=== PATIENT | male | born 1945 | race African-American/Black ===

== ENCOUNTER 2018-11-23 21:45 | Inpatient (IN) | payer OTHER ==
[~2018-11-23] VITALS: Ht 172.7 cm; Wt 78.7 kg
[2018-11-23 21:46] VITALS: BP 114/42
[2018-11-23 22:43] LABS: BE(vivo) 1.9 mmol/L (-2 to +3); PCO2 33.6 mmHg (35.0-45.0); PO2 74.6 mmHg (80.0-100.0); pH 7.489 (7.360-7.450); sO2 96.1 % (92.0-98.0)
[2018-11-23 22:47] LABS: HEMATOCRIT 31.3 % (42.0-52.0); HEMOGLOBIN 10.2 gm/dL (14.0-18.0); MCH 29.6 pg (26.0-34.0); MCHC 32.4 g/dL (28.0-37.0); MCV 91.3 fL (80.0-100.0); PLATELET COUNT 320 thou/uL (150-400); RBC 3.43 mil/uL (4.50-6.00); RDW 17.2 % (10.5-14.5); WBC 15.1 thou/uL (4.0-11.0)
[2018-11-23 22:55] LABS: ANION GAP 12 mmol/L (7-16); BUN 97 mg/dL (7-18); CALCIUM 9.2 mg/dL (8.5-10.1); CHLORIDE 106 mmol/L (98-107); CO2 27 mmol/L (21-32); CREATININE 1.4 mg/dL (0.7-1.3); GLUCOSE 238 mg/dL (74-106); POTASSIUM 4.9 mmol/L (3.5-5.1); SODIUM 145 mmol/L (136-145)
[2018-11-23 23:00] LABS: INR 1.1; PROTIME 11.2 Seconds (9.3-11.4)
[2018-11-23 23:04] LABS: ALBUMIN 2.2 g/dL (3.4-5.0); MAGNESIUM 2.4 mg/dL (1.8-2.4); SGOT 76 U/L (15-37); SGPT 151 U/L (30-65); TOTAL BILIRUBIN 0.5 mg/dL (<0.1-1.0); TOTAL PROTEIN 7.9 g/dL (6.4-8.2); TROPONIN-I <0.06 ng/mL (<0.06)
[2018-11-23 23:49] LABS: ANISOCYTOSIS 1+; PLATELET ESTIMATE NORMAL; POIKILOCYTOSIS 1+; POLYCHROMASIA 1+
[2018-11-24] VITALS (61 sets, daily range): BP systolic 73–142; BP diastolic 29–47
[2018-11-24 02:04] LABS: URINE BILIRUBIN NEGATIVE (Negative); URINE BLOOD 2+ (Negative); URINE CLARITY SL CLOUDY; URINE COLOR YELLOW; URINE GLUCOSE-RANDOM* NEGATIVE (Negative); URINE KETONES NEGATIVE (Negative); URINE LEUKOCYTES-REFLEX 3+ (Negative); URINE NITRITE-REFLEX NEGATIVE (Negative); URINE PROTEIN (DIPSTICK) 2+ (Negative); URINE SPECIFIC GRAVITY <= 1.005 (1.005-1.035)
[2018-11-24 02:35] LABS: CASTS None Seen /LPF (None Seen); MUCUS 0-3 Light strn/LPF (None Seen); SQUAMOUS None Seen /LPF (0-3)
[2018-11-24 02:36] LABS: BACTERIA-REFLEX >30 Many /HPF (None Seen); TRIPLE PHOSPHATE CRYSTALS >10 Many /LPF (None Seen)
[2018-11-24 02:40] LABS: HCO3 23.5 mmol/L (22.0-26.0); PCO2 54.9 mmHg (35.0-45.0); PO2 170.1 mmHg (80.0-100.0); sO2 98.9 % (92.0-98.0)
[2018-11-24] MEDS ORDERED: TYLENOL325 MG PER TUBE (04:01)
[2018-11-24] MEDS ORDERED: LIPITOR 20 MG T20 M1 PER TUBE (04:02)
[2018-11-24] MEDS ORDERED: AMLODIPINE BESY10 MG PER TUBE (04:02)
[2018-11-24] MEDS ORDERED: MARINOL2.5 MG PER TUBE (04:03)
[2018-11-24] MEDS ORDERED: ELIQUIS5 MG PER TUBE ×2 (04:04→04:05)
[2018-11-24] MEDS ORDERED: HYDROCODON-ACE1 EAC5 PER TUBE (04:05)
[2018-11-24] MEDS ORDERED: LISINOPRIL10 MG PER TUBE (04:06)
[2018-11-24] MEDS ORDERED: ONDANSETRON HCL4 M2 PER TUBE (04:08)
[2018-11-24] MEDS ORDERED: ZANTAC 150MG T150 MG PER TUBE (04:09)
[2018-11-24 07:10] LABS: HEMATOCRIT 28.1 % (42.0-52.0); MCH 29.7 pg (26.0-34.0); RBC 3.02 mil/uL (4.50-6.00); RDW 16.6 % (10.5-14.5); WBC 12.6 thou/uL (4.0-11.0)
[2018-11-24 07:23] LABS: CALCIUM 7.7 mg/dL (8.5-10.1); CREATININE 1.4 mg/dL (0.7-1.3); MAGNESIUM 2.1 mg/dL (1.8-2.4); POTASSIUM 4.6 mmol/L (3.5-5.1)
--- NOTE | 2018-11-24 07:53 | EKG ---
[address] [place] [address] ELECTROCARDIOGRAM REPORT Name: SABIHA AGUILERA Room #: 237-P ADM IN M.R.#: [id number] ������������������ Admission: 11/23/18 ������������������ Attend Phys: Tonie Gtz MD Discharge: ������������������ Date of : 43 Report #: [id number] ����������������������������������������������������������������� [id number] THIS REPORT FOR: //name// [facility] ED Test Date: 2018-11-23 Test Time: 21:46:07 Pat Name: SABIHA AGUILERA Department: Room: 237 Gender: M [employer] Driver: JOANIE : 1945 Requested By: Aron Robins Order Number: [id number] MD: Chris Gómez Measurements Intervals [place] Rate: 77 P: [place]: QRS: -71 QRSD: 146 T: 99 QT: 443 QTc: 502 Interpretive Statements V-paced complexes No further analysis attempted due to paced rhythm No previous ECG available for comparison Electronically Signed On 11-24-2018 7:53:18 CDT by Chris Gómez [email or web address] ��������������������������������������������� <ELECTRONICALLY SIGNED> ���������������������������������������� By: Chris Gómez MD, [facility] ��������������������������������������������� 11/24/18 0753 2146 45 Chris Gómez MD, FACC /EPI
--- NOTE | 2018-11-24 08:11 | NUR ---
RECEIVED PT FROM ER TO ICU 237. PT SEEMED TO STILL BE UNDER PARALYTIC, NO MOVEMENT OF EXTREMITIES, EVEN TO PAINFUL STIMULI. EYES OPEN NO COUGH/ OR GAG. LOW DOSE PROPOFOL STARTED FOR SEDATIVE. AND PT DID START MOVING AGAIN THIS AM AND NEEDED TO RESTRAIN RT ARM. MONITORS 100 VENT PACED. SPOKE WITH DR WEBER DURING NOC RE PT STATUS AND ABGS. MAINT IV INFUSING, UO ADEQUATE WITH CLOUDY URINE. ABX GIVEN. CONT PLAN OF CARE
[2018-11-24 08:16] LABS: BE(vivo) -2.7 mmol/L (-2 to +3); HCO3 22.4 mmol/L (22.0-26.0); PCO2 39.7 mmHg (35.0-45.0); PO2 130.3 mmHg (80.0-100.0); pH 7.369 (7.360-7.450); sO2 98.5 % (92.0-98.0)
--- NOTE | 2018-11-24 09:15 | NUR ---
Recommend tube feed of pivot 1.5 at 50ml/hr. Will defer any fluid flushes to physician.
[2018-11-24] MEDS ORDERED: ALBUTEROL2.5 MG/0.5 INH (10:12)
[2018-11-24] MEDS ORDERED: MIRALAX17 GM PER TUBE (10:13)
[2018-11-24] MEDS ORDERED: SANTYL OINTMENT30 G1 TOP ×4 (10:14→14:03)
--- NOTE | 2018-11-24 10:38 | NUR ---
CM ASSESSMENT: CASE OPENED FOR DC PLANNING. CLINICAL INFO REVIEWED. PT ADMIT THRU ER WITH LIKELY SEPSIS AND RESP FAILURE AND INTUBATED IN ER. ADMITS FROM [facility]. SPOKE WITH JULIANA IN ADMISSIONS AT FACILITY. PT IS W/C LEVEL MOBILITY AND REQUIRES ASSIST WITH ADLS. ADMITTED TO FACILITY IN JULY 2018 AND CONVERTED TO LTC. PT'S NEXT OF KIN IS HIS NIECE, ROXY AGUILERA [phone]. SPOKE WITH MS. AGUILERA WHO CONFIRMS FACILITY NOTIFIED HER OF HOSPITAL ADMIT AND PLAN FOR RETURN TO [facility] WHEN MEDICALLY STABLE. PROVIDED MS. AGUILERA WITH ICU CONTACT # AND CM CONTACT #. REQUESTED DC INNERSOLE MAKER FAX CLINICAL TO JULIANA IN ADMISSIONS AT FACILITY.
--- NOTE | 2018-11-24 10:54 | NUR ---
discharge planning: silverio sent clinicals to [facility] at [facility]. SILVERIO also sent text to notify [facility] of fax.
--- NOTE | 2018-11-24 11:56 | NUR ---
CONSULTED TO PLACE A PICC FOR A PATIENT ADMITTING WITH SEPSIS LAST PM. ORDER NOTED AND CONSENT DONE PER MEDICAL NECESSITY AFTER STAFF MADE MULTIPLE ATTEMPTS TO REACH THE DPOA. THE RIGHT UPPER ARM BASILIC WAS WIDLEY PATENT. A #5F TRIPLE LUMEN POWER PICC WAS PLACED AFTER A BEDSIDE TIMEOUT WAS COMPLETED PER HOSPITAL POLICY. LINE WAS TRIMMED TO 40CM AND ADVANCED WITHOUT DIFFICULTY. LINE CONFIRMED BY THE RADIOLOGIST BY A STAT CHEST XRAY. LINE RELEASED FOR USE
[2018-11-24] MEDS ORDERED: IPRAT-ALBUT 0.5-3 ML INH (13:56)
[2018-11-25] VITALS (32 sets, daily range): BP systolic 98–146; BP diastolic 37–67
[2018-11-25 05:01] LABS: CALCIUM 8.1 mg/dL (8.5-10.1); CREATININE 0.9 mg/dL (0.7-1.3); POTASSIUM 4.1 mmol/L (3.5-5.1)
[2018-11-25 05:03] LABS: HEMATOCRIT 25.7 % (42.0-52.0); HEMOGLOBIN 8.5 gm/dL (14.0-18.0); MCH 30.1 pg (26.0-34.0); MCV 91.2 fL (80.0-100.0); RBC 2.82 mil/uL (4.50-6.00); RDW 16.6 % (10.5-14.5); WBC 9.4 thou/uL (4.0-11.0)
[2018-11-25 05:08] LABS: BE(vivo) -3.7 mmol/L (-2 to +3); HCO3 20.7 mmol/L (22.0-26.0); PCO2 35.1 mmHg (35.0-45.0); PO2 127.4 mmHg (80.0-100.0); pH 7.388 (7.360-7.450); sO2 98.5 % (92.0-98.0)
--- NOTE | 2018-11-25 08:57 | NUR ---
SEE [facility] FOR ASSESSMENT. PT WILL AWAKENS ON PROPOFOL. NODS YES/NO TO QUESTIONS. SEEMS TO UNDERSTAND, APPEARS AGITATED. RT ARM RESTRAINT ON, LEFT ARM MOVES WITH GROSS MOTOR. PACED RYTHEM ON MONITOR. CONT ON VENT. THICK YELLOW SECRETIONS. UO ADEQUATE. CONT PLAN OF CARE. PROGRESSING TOWARD GOALS
--- NOTE | 2018-11-25 14:15 | NUR ---
WOUND CARE CONSULT; ROUNDING TODAY WITH DR CHANDLER BAILEY AND YUSRA HELP DESK SUPERVISOR. THE LEFT FOOT HAS WOUNDS TO THE 3RD AND 4TH TOE WELL THE RIGHT ISCIAL TUBEROSITY, AND THE SACRUM; A RESOLVEING STAGE Y IS LIKELY ALL THE WOUNDS HAVE HEALTHY RED TISSUE. RECOMMENDATIONS; TO ALL WOUNDS PURACOL AG TO WOUND BED, COVER WITH XEROFOAM,, ABD, SECURE WITH TAPE, M/W/F DISCUSSED WITH RN
--- NOTE | 2018-11-25 14:27 | NUR ---
WOUND CARE CONSULT; ROUNDING WITH DR LYNN MENG RN. THERE IS A WOUND TO THE SACRUM #1 , THE RIGHT ISCIAL TUBEROSITY #2, THE LEFT 3RD TOE #3 AND THE LEFT 3RD TOE #4. ALL WOUND BEDS ARE CLEAN. RECOMMENDATIONS PURACOL AG TO ALL WOUNDS M/W/F DISCUSSED WITH ANAMARIA
--- NOTE | 2018-11-25 16:14 | NUR ---
PT VSS, ABLE TO RESPOND TO Y/N QUESTIONS APPROPRIATELY BY NODDING HEAD, SPOKE WITH MAC RAMSEY VIA PHONE, SHE VERBALIZED THAT PT DPOA IS MAURICIO DAY ([phone]) WHOM WILL BRING IN DPOA PAPERWORK SOON. UPDATE BOTH ROXY AND ED ON PT PLAN OF CARE, THEY BOTH AGREED WITH PLAN. WILL CONTINUE TO MONITOR.
--- NOTE | 2018-11-25 19:23 | NUR ---
PER ANAMARIA BANKSTESTER WAFER SUBSTRATE, WOULD CARE PICTURES NOT NEEDED TODAY BC THERE WERE PICTURES DOCUMENTED 11/24/18 BY NURSE STAFF.
--- NOTE | 2018-11-25 19:31 | HC ---
[facility] [place] [address] CONSULTATION Name: SABIHA AGUILERA Room #: 237-P ADM IN M.R.#: [id number] Admission: 11/23/18 ������������������ Attend Phys: Tonie Gtz MD Discharge: ������������������ Date of : 43 Report #: [id number] THIS REPORT FOR: //name// CC: Gaurang Gtz DATE OF SERVICE: 11/24/2018 PULMONARY CONSULTATION REFERRING PHYSICIAN: Dr. Fuchs. REASON FOR REFERRAL: Acute respiratory failure. HISTORY OF PRESENT ILLNESS: The patient is a 73-year-old male who was brought to the Emergency Room with respiratory distress. He is from a facility. A pulmonary consultation was requested. The patient has prior history of CVA, pneumonia with frequent aspiration. History is quite limited as currently the patient is intubated. There is a niece in town, but not able to get hold of. Other records are limited. Per EMS, the staff at the facility noted that the patient was in respiratory distress yesterday evening, 911 was called. When EMS arrived, the patient was placed on CPAP, was given DuoNeb treatment and was taken to the Emergency Room. On route, the patient was found to be in rhythm. When he arrived in the ED, the patient was placed on CPAP; however, eventually, his respiratory status deteriorated and was subsequently intubated. A chest x-ray on admission revealed moderate right lower lobe infiltrate, also involving the right middle lobe. Currently, he is hemodynamically stable, easily arousable with physical stimuli. PAST MEDICAL HISTORY: As mentioned above including history of CVA, apparent aspiration, status post PEG tube placement, history of pneumonia. ALLERGIES: None. MEDICATIONS: [place] [facility], not available for review. Current medications reviewed in the JUL. FAMILY HISTORY: Unknown. SOCIAL HISTORY: Unknown. [facility] [address] [place] [address] CONSULTATION Name: SABIHA AGUILERA Room #: 237-P [facility] IN .R.#: [id number] Admission: 11/23/18 ������������������ Attend Phys: Tonie Gtz MD Discharge: ������������������ Date of : 44 Report #: [id number] REVIEW OF SYSTEMS: Deferred as the patient is intubated. PHYSICAL EXAMINATION: GENERAL: He is arousable, somewhat incoherent, restless, currently on sedation. VITAL SIGNS: Temperature on admission was 101.0 degrees Fahrenheit, currently 99.9 degrees Fahrenheit; pulse is 60, respiratory rate is 18, blood pressure 140/36 mmHg, saturation 100% on supplemental FiO2. HEENT: Normocephalic, atraumatic. He is orally intubated. NECK: Supple, without lymphadenopathy or thyromegaly. There is no JVD. CHEST: Breath sounds are fair. Rales in the right lung field. No obvious wheezes. Few scattered crackles are heard in the left base. CARDIOVASCULAR: Heart sounds are distant. No obvious murmurs or gallops. Pulses are 2+/4+ bilaterally. ABDOMEN: Soft, nontender, no organomegaly or masses felt. There is a PEG tube noted in the left upper quadrant. GENITOURINARY: Deferred. RECTAL: Deferred. EXTREMITIES: There is no edema, cyanosis or clubbing. NEUROLOGIC: Deferred, but the patient is arousable, appears restless. He appears to be somewhat weaker on the left extremities, but is not flaccid. LABORATORY DATA: Chest x-ray as mentioned above showing moderate right lower lobe and middle lobe infiltrates. ET tube is approximately 3 cm above the simon. Lactic acid is 3.8. UA shows many bacteria. MRSA screen was positive. C-reactive protein is markedly elevated. Sodium 147, potassium 4.6, chloride 110, CO2 of 26, BUN is 91, creatinine is 1.4. Liver enzymes are mildly elevated. WBC 15,100, hemoglobin 10.2, platelets are normal. Bands are mildly elevated, but within normal limits. Albumin 2.2. Arterial blood gas on admission revealed pH 7.48, pCO2 of 33, pO2 of 74 on FiO2 of 100%. IMPRESSION: 1. Acute hypoxic respiratory failure in a 73-year-old male with past history of cerebrovascular accident, history of recurrent aspiration. Another episode of aspiration pneumonia is likely involving the right lower lobe and the right middle lobe. 2. History of cerebrovascular accident with progressive muscle weakness, debility. 3. History of aspiration risk, status post PEG tube placement. 4. Azotemia with renal insufficiency, suspect volume depletion. Recommend IV fluids. Unclear if the patient has chronic kidney disease. Review of old records will be helpful if available. 5. Severe protein calorie malnutrition with an albumin of 2.2. RECOMMENDATIONS: Agree with broad-spectrum antibiotics to cover for aspiration pneumonia. Levaquin can be discontinued from my perspective. Deep venous thrombosis and gastrointestinal prophylaxis recommended. Await sputum culture [address] [address] CONSULTATION Name: SABIHA AGUILERA Room #: 237-P [facility] IN M.R.#: [id number] Admission: 11/23/18 ������������������ Attend Phys: Tonie Gtz MD Discharge: ������������������ Date of : 43 Report #: [id number] results. IV fluids as mentioned above. Follow urine output closely. Overall outlook appears to be poor given his history and physiologic status. Would recommend discussing medical directives with the patient's niece. Thank you for this consultation. ��������������������������������������������� <ELECTRONICALLY SIGNED> ���������������������������������������� By: Pal Barnes MD ��������������������������������������������� 11/25/18 1931 1715 2300 Pal Barnes MD /nt
[2018-11-26] VITALS (41 sets, daily range): BP systolic 98–134; BP diastolic 34–55
[2018-11-26 06:00] LABS: HEMOGLOBIN 8.4 gm/dL (14.0-18.0); MCH 29.6 pg (26.0-34.0); MCHC 32.5 g/dL (28.0-37.0); RBC 2.85 mil/uL (4.50-6.00); RDW 16.3 % (10.5-14.5); WBC 9.4 thou/uL (4.0-11.0)
[2018-11-26 06:16] LABS: ALBUMIN 1.6 g/dL (3.4-5.0); CALCIUM 8.2 mg/dL (8.5-10.1); CREATININE 0.9 mg/dL (0.7-1.3); POTASSIUM 3.9 mmol/L (3.5-5.1); TOTAL BILIRUBIN 0.3 mg/dL (<0.1-1.0); TOTAL PROTEIN 6.5 g/dL (6.4-8.2)
--- NOTE | 2018-11-26 07:33 | NUR ---
NO ACUTE CHANGES NOTED,VENT SETTINGS UNCHANGED, TUBE FEEDING STARTED LAST NIGHT ADVANCING SLOWLY TO GOAL, RATE AT 30ML/HR, GOAL IS 50ML. VITALS WNL, HIGGINS DRAINED 500CC. FREQUENT TURNS DONE.
--- NOTE | 2018-11-26 08:33 | NUR ---
PT'S FRIEND MAURICIO DAY VISITED YESTERDAY STATING HE WAS MEDICAL POA BUT DID NOT HAVE DOCUMENT ON HIM. CALLED [facility] AND THEY DID NOT HAVE DOCUMENT BUT PARKING INSPECTOR CONFIRMED MAURICIO MEDIAL DPOA. MAURICIO HERE THIS AM AND PROVIDED DOCUMENT AND COPY NOW IN CHART AND FAXED COPY TO [facility] ADMISSIONS. YESTERDAY, PAD EXTRACTOR TENDER STATED MR DAY TOLD HER PT SPENSERLEY DID NOT WANT BREATHING TUBE OR TRACHEOSTOMY IF NEEDED, BUT DPOA STATED SOMETHING LIKE, NOT READY TO GIVE UP ON PT. PAD EXTRACTOR TENDER YEE UPDATED.
[2018-11-26 10:36] LABS: BE(vivo) -3.7 mmol/L (-2 to +3); HCO3 20.6 mmol/L (22.0-26.0); PCO2 33.8 mmHg (35.0-45.0); PO2 111.2 mmHg (80.0-100.0); pH 7.402 (7.360-7.450); sO2 98.1 % (92.0-98.0)
--- NOTE | 2018-11-26 10:43 | NUR ---
capacity planner faxed signed DPA to [facility]
--- NOTE | 2018-11-26 11:10 | NUR ---
Pt was placed on CPAP trial by RT (Dr Barnes aware). ABG post CPAP trial called to Dr Barnes. Pt is resting quiestly. Dr Gtz planning to meet approx 1130 with pt's DPOA to discuss plan of care.
--- NOTE | 2018-11-26 15:38 | NUR ---
RECEIVED CALL FROM PT'S NIECE, ROXY AGUILERA. SHE INDICATES PT'S DPOA MAURICIO SHAY LEANS ON HER TO ASSIST IN MAKING MEDICAL DECISIONS FOR PT. ROXY REQUESTED UPDATE ON CONDITION AND PROVIDED AND DISCUSSED COMORBIDITIES AND CODE STATUS. ROXY INDICATES SHE WILL DISCUSS WITH MR. DAY AND REQUESTS UPDATE CALL FROM TOMORROW.
--- NOTE | 2018-11-26 16:05 | HC ---
[facility] [place] [address] CONSULTATION Name: SABIHA AGUILERA Room #: 237-P [facility] IN M.R.#: [id number] Admission: 11/23/18 ������������������ Attend Phys: Tonie Gtz MD Discharge: ������������������ Date of : 44 Report #: [id number] THIS REPORT FOR: //name// CC: Gaurang Gtz DATE OF SERVICE: 11/25/2018 CHIEF COMPLAINT: Lower extremity ulcerations. HISTORY OF PRESENT ILLNESS: This is a 73-year-old male patient who is currently on a ventilator in the Intensive Care Unit. He was found to be in respiratory distress with a history of dysphagia and frequent aspirations. He was intubated. He remains in the ICU. He is noted to have ulcerations on his feet and sacral region. I have been asked to see him with regard to wound care. The patient can provide no information about himself at this time. PAST MEDICAL HISTORY: Positive for history of osteomyelitis, previous right above knee amputation, DVT with possible pulmonary emboli, type 2 diabetes mellitus, sacral ulcerations, history of a left fourth toe amputation, hypertension, hyperlipidemia and atrial fibrillation. He has a permanent pacemaker. FAMILY HISTORY: Unknown. SOCIAL HISTORY: Unknown. MEDICATIONS: Include Tylenol, amlodipine, atorvastatin, Eliquis, Zestril, Zofran and Zantac. ALLERGIES: No known drug allergies. REVIEW OF SYSTEMS: Unobtainable due to the patient's condition. PHYSICAL EXAMINATION: VITAL SIGNS: At this time include blood pressure 119/54, pulse rate 60, respiratory rate of 20. GENERAL: This is a chronically ill-appearing male patient who appears to be in no obvious distress. He appears sedated or minimally responsive. HEAD: Normocephalic. NECK: Supple. The patient is orally intubated. LUNGS: Diminished. HEART: Regular. ABDOMEN: Soft. MUSCULOSKELETAL: Examination of the sacral region demonstrates stage 3 pressure ulceration to the sacral region and the right ischial region. These are [address] [address] CONSULTATION Name: SABIHA AGUILERA Room #: 237-P [facility] IN .R.#: [id number] Admission: 11/23/18 ������������������ Attend Phys: Tonie Gtz MD Discharge: ������������������ Date of : 44 Report #: [id number] relatively clean and granulating. There is some hyperpigmentation surrounding these areas. They are not overtly infected. No exposure of deep structures are noted at this time. Lower extremities demonstrate the patient has a prior right above knee amputation that appears to be well-healed. The left lower extremity demonstrates ulceration on the medial aspect of the left great toe as well as the lateral aspect of the left foot at the lateral third MTP. Both of these areas are relatively clean and granulating and do not show evidence of any infection. These appear to be pressure related stage 3. He has a surgically absent fourth toe. NEUROLOGIC: The patient is minimally or nonresponsive. LABORATORY DATA: White blood cell count 9.4 with hemoglobin of 8.5, hematocrit 25.7 and platelet count 230,000. Sodium 146, potassium 4.1, chloride 111, CO2 of 22, BUN 67, creatinine 0.9, glucose 169, calcium is 8.1 and albumin is low at 2.2. CLINICAL IMPRESSION: 1. Stage 3 pressure ulceration to the right ischial tuberosity and sacrum. 2. Stage 3 pressure ulceration to the left lateral third toe and left medial great toe. 3. Prior right above knee amputation. 4. Respiratory failure requiring mechanical ventilation. 5. Probable aspiration pneumonia with severe sepsis. 6. Moderate protein-calorie malnutrition with albumin of ____. 7. History of prior cerebrovascular accident. RECOMMENDATIONS: At this point in time, the patient will be placed on low air loss mattress with q. 2 hour turning and positioning. He will wear PRAFO boot to the left lower extremity. We will recommend bordered foam to the sacral and ischial region to be changed on an every other day basis with Puracol to the wound bed. We will recommend Puracol and a gauze dressing to the ulcers on the left great toe and left third MTP region. He will need aggressive nutritional support to maximize wound healing and maintain glycemic control. I appreciate being asked to see him in consultation. ��������������������������������������������� <ELECTRONICALLY SIGNED> ���������������������������������������� By: Otto Russell MD ��������������������������������������������� 11/26/18 1605 1443 0050 Otto Russell MD /nt
--- NOTE | 2018-11-26 19:00 | NUR ---
Call was placed to Dr Gtz to clarify dosing scale of pain medications. Dr Gtz indicated DPSHELL did not attend planned meeting. Dr Gtz updated Dr WEBER. No further weaning trials today. Tolerating tube feedings.
[2018-11-27] VITALS (47 sets, daily range): BP systolic 87–143; BP diastolic 35–66
[2018-11-27 05:40] LABS: HEMATOCRIT 26.7 % (42.0-52.0); HEMOGLOBIN 8.8 gm/dL (14.0-18.0); MCH 29.8 pg (26.0-34.0); MCHC 32.8 g/dL (28.0-37.0); MCV 90.8 fL (80.0-100.0); RBC 2.94 mil/uL (4.50-6.00); RDW 16.4 % (10.5-14.5); WBC 9.3 thou/uL (4.0-11.0)
[2018-11-27 05:55] LABS: CREATININE 0.9 mg/dL (0.7-1.3); POTASSIUM 3.7 mmol/L (3.5-5.1)
--- NOTE | 2018-11-27 07:42 | NUR ---
Pt rested well during the night, propofol gtt for sedation, pain well controlled, tube feedings at 30ml/hr not yet at goal of 50ml/hr. Blood sugars in the 200's, moderate dose sliding scale insulin given. Frequent repositioning done, z guard applied to affected areas. Small loose bm, samuels output 550, ivf infusing.
[2018-11-27 09:27] LABS: BE(vivo) -2.9 mmol/L (-2 to +3); HCO3 20.2 mmol/L (22.0-26.0); PCO2 29.7 mmHg (35.0-45.0); PO2 83.6 mmHg (80.0-100.0); pH 7.451 (7.360-7.450); sO2 96.8 % (92.0-98.0)
--- NOTE | 2018-11-27 11:22 | NUR ---
0755-RT is at bedside and suggested to C-PAP weaning trial again. This nurse stopped propofol and pt's vent converted to C-PAP. Pt was more alert, followed this nurse's commands appropriately. L arm was flaccid but pt tried to squeeze fingers of this nurse. 0925-RT came back and lia ABG gas. PH, PCO2, RSBI were wnl but RR was 27. This nurse talked to Dr. Weber. Dr. WEBER concerned about RR and decided to keep pt on vent one more day. 0945-This nurse resumed Propofol @35 then @30.88 at 10. 1130-Pt's SBP dropped down <100 w/ MAP<60. Propofol was titrated to 20mcg/kg/min.
--- NOTE | 2018-11-27 13:49 | NUR ---
PT RESIDES AT [facility] FAXED UPDATED PULM. NOTES TO FACILITY SPOKE WITH JULIANA IN ADM SHE RECEIVED UPDATE. DCP TO FOLLOW.
--- NOTE | 2018-11-27 15:49 | NUR ---
FOLLOWING FOR DC PLANNING. CLINICAL INFO REVIEWED. CPAP THIS AM FOR AN HOUR RR LITTLE FAST AND RIVER CROSSING SUPERVISOR NOTES PER DR. WEBER WILL CPAP AGAIN IN AM AND POSSIBLY EXTUBATE. SPOKE WITH PT'S NIECE ROXY AGUILERA THIS AFTERNOON BY PHONE WITH UPDATE. MS AGUILERA VERBALIZES HER UDERSTANDING OF PT'S CONDITION AND RECMOOMENDATION FORM PHYSICIANS FOR DNR. SHE WANTS TO MAINTAIN FULL CODE STATUS AT PRESENT. MS AGUILERA INDICATES IF PT IS ABLE TO COMPETENTLY GIVE DIRECTIVE OF DO NOT RESUSCITATE, SHE WILL RESPECT HIS DIRECTIVE. WILL FOLLOW AND IF/WHEN PT EXTUBATED WILL SEE IF ABLE TO HAVE CONVERSATION ABOUT HEALTHCARE DIRECTIVE AND HAVE NIECE ON SPEAKER PHONE. RN AND DRS. WEBER AND COLUMBA UPDATED.
--- NOTE | 2018-11-27 17:11 | NUR ---
PT REMAINS ON THE VENT. TOLERATING TUBE FEEDINGS.LUNGS ARE DIMINISHED. V-PACED AT 61. HIGGINS TO DD WITH YELLOW URINE PRESENT. GENERALIZED EDEMA 2 PLUS. IN RESTRAINT ON RIGHT. REMAINS ON SEDATION. CPAP TRIAL DONE TODAY. TURN Q 2 HOURS WILL CONTINUE TO ASSESS AND MONITOR PER NURSING.
[2018-11-28] VITALS (16 sets, daily range): BP systolic 119–175; BP diastolic 47–72
[2018-11-28 06:35] LABS: HEMATOCRIT 26.8 % (42.0-52.0); HEMOGLOBIN 8.7 gm/dL (14.0-18.0); MCH 29.1 pg (26.0-34.0); MCHC 32.4 g/dL (28.0-37.0); MCV 89.8 fL (80.0-100.0); RBC 2.98 mil/uL (4.50-6.00); RDW 16.2 % (10.5-14.5); WBC 15.3 thou/uL (4.0-11.0)
[2018-11-28 06:45] LABS: CALCIUM 7.9 mg/dL (8.5-10.1); CREATININE 0.6 mg/dL (0.7-1.3); POTASSIUM 3.4 mmol/L (3.5-5.1)
--- NOTE | 2018-11-28 08:00 | NUR ---
REMAINS INTUBATED AND SEDATED LIGHTLY WITH PROPOFOL GTT. OPENS EYES SLIGHTLY AND WILL MANUFACTURING FINANCE MANAGER WEAKLY TO COMMAND. 800 CC UO THUIS SHIFT. REMAINS IN A PACED RHYTHM, BATHED. WILL CONT TO MONITOR.
--- NOTE | 2018-11-28 17:10 | NUR ---
REMAINS ON VENT. CPAP TRIAL DONE TODAY. REPORTS TO DR. WEBER. REMAINS ON SEDATION. TUBE FEEDING TOLERATING WELL. LUNGS ARE COARSE TO DIMINISHED. COPIOUS CLEAR SECREATION NOTED AND SUCTIONED. BM X2 LOOSE STOOLS TODAY AND CLEANED UP Z TALISHA TO COCCYX. CONTINUING ANTIBIOTICS . NO ISSUES OR CONCERNS NOTED.
[2018-11-29] VITALS (24 sets, daily range): BP systolic 119–143; BP diastolic 43–59
--- NOTE | 2018-11-29 04:52 | HC ---
[facility] [place] [address] CONSULTATION Name: SABIHA AGUILERA Room #: 237-P ADM IN M.R.#: [id number] Admission: 11/23/18 ������������������ Attend Phys: Tonie Gtz MD Discharge: ������������������ Date of : 43 Report #: [id number] THIS REPORT FOR: //name// CC: Gaurang Gtz DATE OF SERVICE: 11/28/2018 INFECTIOUS DISEASE CONSULTATION REASON FOR EVALUATION: Aspiration pneumonitis, complicated by respiratory failure. HISTORY OF PRESENT ILLNESS: Chart reviewed, patient examined. This is a 73-year-old gentleman with history of previous stroke as a result of his disability, lives in a facility. He was transported from there on the day of admission due to worsening respiratory distress, found to be hypoxemic. He was attempted on positive pressure ventilation by mask and this was not sufficient and ultimately underwent emergent intubation. He is currently on mechanical ventilatory support. He does open his eyes, not clear that he has a comprehension at this point and imaging suggested right-sided pneumonitis. Had a sputum culture collected on the night, this grew out oxacillin-resistant Staphylococcus aureus. Urine culture with Proteus mirabilis. He is currently on therapy with piperacillin/tazobactam as well as vancomycin. He is receiving some enteral nutritional support. Apparently tolerating reasonably well, does have moderate pulmonary secretions and is having some loose stools as well. ALLERGIES: None known. CURRENT MEDICATIONS: Include methylprednisolone, Zosyn, vancomycin, metoclopramide, hydrocodone, midazolam as needed, p.r.n. analgesics, and antiemetics. PAST MEDICAL HISTORY: Includes known hypertension, previous stroke. He has got decubitus ulcers, previous history of aspiration pneumonitis, previous right above knee amputation, has a PEG as well. SOCIAL HISTORY: Available in the chart. FAMILY HISTORY: Available in the chart. REVIEW OF SYSTEMS: Not obtainable. PHYSICAL EXAMINATION: GENERAL: Does open his eyes, makes eye contact. He is intubated on mechanical ventilator support. He is in a supine position. He is chronically ill and [facility] [address] [place] [address] CONSULTATION Name: SABIHA AGUILERA Room #: [address] [place] [address] IN M.R.#: [id number] Admission: 11/23/18 ������������������ Attend Phys: Tonie Gtz MD Discharge: ������������������ Date of : 43 Report #: [id number] undernourished. He is in mild distress. VITAL SIGNS: Temperature 97.8, pulse 60, respirations 20, and blood pressure 136/56. SKIN: Warm, dry, no rashes. HEENT: Normocephalic. Extraocular muscles appear to be intact. NECK: Supple. LUNGS: Scattered coarse breath sounds. Borderline bradycardic. HEART: Regular, occasional ectopy. I do not appreciate any murmur. ABDOMEN: Soft. There are no apparent peritoneal signs. GENITOURINARY: Deferred. RECTAL: Deferred. LABORATORY DATA: Chest x-ray shows bilateral lower lobe infiltrates, right greater than the left. At this point electrolytes: Sodium 143, potassium 3.4, chloride 111, bicarbonate is 23, anion gap of 9, BUN and creatinine 39 and 0.6. CBC: White count of 15.3, H and H 8.7 and 26.8, and platelets of 302. Sputum culture has got a 4+ MRSA, NETO is equal to 1 for the vancomycin. Recent ABG from yesterday pH 7.451, pCO2 of 29.7, pO2 of 83.6 on FiO2 of 30% during a trial. Urine culture growth of 10-25,000 CFUs, Proteus mirabilis, quinolone resistant as well as Bactrim and tetracycline resistant. ASSESSMENT: Pneumonitis with isolation of methicillin-resistant Staphylococcus aureus. The patient has extended period on mechanical ventilatory support. Also likely has a complicated urinary tract infection. We will continue combination therapy. I think we can narrow down the piperacillin/tazobactam. Utilize ceftriaxone in the setting, switch over to linezolid as well. I get better penetration into the pulmonary parenchyma, quite marginal at this point. Certainly at risk for nosocomial related infectious complications, but monitor expectantly. Wean off support as allow. ��������������������������������������������� <ELECTRONICALLY SIGNED> ���������������������������������������� By: Charles Alan MD ��������������������������������������������� 11/29/18 0452 [id number] Charles Alan MD /nt
[2018-11-29 05:36] LABS: HEMATOCRIT 27.1 % (42.0-52.0); HEMOGLOBIN 8.8 gm/dL (14.0-18.0); MCH 29.2 pg (26.0-34.0); MCHC 32.5 g/dL (28.0-37.0); MCV 89.9 fL (80.0-100.0); RBC 3.01 mil/uL (4.50-6.00); RDW 16.2 % (10.5-14.5); WBC 19.5 thou/uL (4.0-11.0)
[2018-11-29 05:51] LABS: CALCIUM 7.9 mg/dL (8.5-10.1); CREATININE 0.6 mg/dL (0.7-1.3); POTASSIUM 3.2 mmol/L (3.5-5.1)
--- NOTE | 2018-11-29 06:00 | NUR ---
REMAINS INTUBATED AND LIGHTLY SEDATED WITH PROPOFOL GTT. V PACED. MORE ALERT TONIGHT. DIESEL MAINTENANCE TECHNICIAN WEAKLY TO COMMAND. 1200 CC UP THIS SHIFT. BATHED. WILL CONT TO MONITOR
--- NOTE | 2018-11-29 15:54 | NUR ---
PT IS AWAKE WEAK AND TIRED. REAMINS ON THE VENT. CPAP TRIAL DONE AND PT DOESNT TOLERATE IT. LUNGS ARE COARSE. 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 TOLERATING TUBE FEEDING WITH 20CC RESIDUAL NOTED . WOUND CARE DOCTOR MADE ROUNDS. PUTTING Z-GAURD TO COCCY AREA. TURN 2 HOURS NOTED. ABDOMEN IS SOFT AND ROUND. BOWEL SOUNDS ACTIVE. HIGGINS TO DD WITH YELLOW URINE PRESENT. RESTRAINTS BIALTERAL AND RESTING . ONGOING NURSING CARE AT THIS TIME WITH PLAN OF CARE
[2018-11-30] VITALS (18 sets, daily range): BP systolic 108–160; BP diastolic 34–53
[2018-11-30 05:39] LABS: HEMATOCRIT 25.5 % (42.0-52.0); HEMOGLOBIN 8.5 gm/dL (14.0-18.0); MCH 29.9 pg (26.0-34.0); MCHC 33.3 g/dL (28.0-37.0); RBC 2.83 mil/uL (4.50-6.00); RDW 16.2 % (10.5-14.5); WBC 22.3 thou/uL (4.0-11.0)
[2018-11-30 05:52] LABS: CALCIUM 7.8 mg/dL (8.5-10.1); CREATININE 0.5 mg/dL (0.7-1.3); MAGNESIUM 1.7 mg/dL (1.8-2.4); POTASSIUM 3.5 mmol/L (3.5-5.1)
--- NOTE | 2018-11-30 06:00 | NUR ---
PT REMAINS INTUBATED AND LIGHTLY SEDATED WITH PROPOFOL FOR VENT MANAGEMENT OPEN EYES TO NAME AND ASSOCIATE FACULTY WEAKLY TO COMMAND. UO 800 CC THIS SHIFT. V PACED RATE 60. NO STOOLS TONIGHT. WILL CONT TO MONITOR.
[2018-11-30 08:35] LABS: BE(vivo) -3.3 mmol/L (-2 to +3); HCO3 19.4 mmol/L (22.0-26.0); PO2 81.9 mmHg (80.0-100.0); pH 7.474 (7.360-7.450); sO2 96.9 % (92.0-98.0)
--- NOTE | 2018-11-30 11:02 | NUR ---
Received orders for extubation from Dr Barnes. Tube feedings shut off at 1025. OG placed to LIS now to empty stomach prior to extubation. Pt resting quietly. Suctioned per ET tube with small amt of cream colored secretions.
--- NOTE | 2018-11-30 13:55 | NUR ---
Extubated by RT. Tube feedings are on hold. OG has been to LIS to evacuate stomach prior to extubation. OG removed by RT with extubation.
--- NOTE | 2018-11-30 15:06 | NUR ---
UPDATE TO PT'S NIECE ROXY TODAY. PLANS FOR EXTUBATION AND WILL ATTEMPT TO SPEAK WITH PT ABOUT HIS HEALTHCARE DIRECTIVE/CODE STATUS.
--- NOTE | 2018-11-30 17:01 | NUR ---
PT EXTUBATED THIS AFTERNOON AND ON 3 LITERS NC O2 NOW. MET WITH PT WHO IS ALERT BUT WEAK AND SPEAKING IS DIFFICULT BUT HE IS ABLE TO COMMUNICATE. PT AWARE HE IS IN HOSPITAL. PT ASKED FOR TOWEL. PT AGREEABLE TO CALLING HIS NIECE PEGGY AGUILERA AND HAVING HER ON SPEAKERPHONE FOR CONVERSATION ABOUT MEDICAL DIRECTIVE. MS. AGUILERA ON PHONE AND PT ABLE TO COMMUNICATE FOR HER TO HEAR HIM. PT INDICATED HE DID NOT WANT BREATHING TUBE AGAIN AND DID WANT CPR. NIECE INDICATED SHE WANTS TO KEEP FULL CODE AT PRESENT. RN UPDATED. CM TO FOLLOW TO PROVIDE EDUCATION TO PT ABOUT HEALTH CARE DIRECTIVE.
--- NOTE | 2018-11-30 19:00 | NUR ---
Report given to oncoming RN. Pt remain extubated and is now on nasal cannula at 3 liters. Congested cough. Voice hoarse. Pt incontinent of large loose stool near end of shift. Medicated with Hydrocodone twice today for pain from sacral wound and back. Partial relief reported by patient.
[2018-12-01] VITALS (19 sets, daily range): BP systolic 108–155; BP diastolic 37–61
[2018-12-01 04:30] LABS: HEMATOCRIT 22.9 % (42.0-52.0); HEMOGLOBIN 7.5 gm/dL (14.0-18.0); MCH 29.7 pg (26.0-34.0); MCHC 32.8 g/dL (28.0-37.0); MCV 90.6 fL (80.0-100.0); RBC 2.52 mil/uL (4.50-6.00); RDW 16.3 % (10.5-14.5); WBC 16.8 thou/uL (4.0-11.0)
[2018-12-01 04:41] LABS: CALCIUM 7.6 mg/dL (8.5-10.1); CREATININE 0.6 mg/dL (0.7-1.3); POTASSIUM 3.4 mmol/L (3.5-5.1)
--- NOTE | 2018-12-01 07:00 | NUR ---
PT EXTUBATED YESTERDAY AFTERNOON. PT IS NOW ON 1L O2 NC AND O2 SAT IS 100%. PT'S VOICE IS VERY HOARSE AND WEAK. PT HAS A FAIR, CONGESTED COUGH, BUT DID NOT COUGH UP ANY SPUTUM. POTASSIUM LOW THIS MORNING; REPLACED PER PROTOCOL. TUBE FEEDINGS RESTARTED AND TOLERATING WELL, LITTLE TO NO RESIDUALS. NO OVERNIGHT EVENTS. WILL CONTINUE TO MONITOR.
--- NOTE | 2018-12-01 10:22 | NUR ---
[facility]G WITH JULIANA IN ADM UPDATE FAXED. DCP TO FOLLOW.
--- NOTE | 2018-12-01 16:18 | NUR ---
MET WITH PT TODAY, HE IS MORE AWAKE TODAY AND RECALLS CONVERSATION FROM YESTERDAY WITH CM AND HIS NIECE ROXY. ROXY ON SPEAKERPHONE AND PT AND RN ALONDRA IN ROOM WITH PT. PT WAS ABLE TO COMMUNICATE HE IS WANTS TO REMAIN A FULL RESUSCITATION. PT WAS ASKED ABOUT WHETHER HE WOULD WANT A TRACHEOSTOMY IF HE HAD TO GO BACK ON VENTILATOR AND WAS UNABLE TO BE WEANED AFTER A COUPLE OF WEEKS AND PT INDICATED HE WOULD NOT WANT TRACHEOSTOMY AND AGREED AT THAT POINT WOULD WANT TO FOCUS ON COMFORT. PULM TOUCH UP WORKER ROUNDING AND UPDATED. DR. WATERMAN [facility]. [place] [facility] [place] BILINGUAL PATIENT SUPPORT CASEWORKER.
--- NOTE | 2018-12-01 18:15 | NUR ---
SHIFT SUMMARY/ CC TELE TRANSER: PROGRESSED TODAY. ALERT/ORIENTED X 4, SPEECH VERY GARBLED ON L SIDE AND IMPROVED ON R SIDE, AFIB WITH UNDERLYING V PACED RHYTHM, ROOM AIR, STRICTLY NPO TO PREVENT ASPIRATION, USING THICKENED LIQUID TO SWAB MOUTH, TOLERATING TUBE FEEDING AT GOAL RATE, ADEQUATE URINE OUTPUT. PT TURNED Q 2 HRS, ROTATION MODE ENABLED PER ICU BED, BED ALARM ON. PT TRANSFERRED TO TELE RM# [id number], THEN BEDSIDE REPORT GIVEN TO ANAMARIA VELAZQUEZ.
--- NOTE | 2018-12-01 19:00 | NUR ---
PATIENT ARRIVED TO UNIT AT 1815 FROM ICU.ICU NURSE GAVE BEDSIDE SHIFT REPORT.PT HAS TELEM. V-PACED.TUBEFEEDING IN PLACE AT GOAL OF 50ML/HR.NO WATER FLUSHES.IV IS SALINE LOCKED AT THIS TIME.PT HAS OPEN WOUNDS ON SCARUM, BUTTOCKS, GREAT TOE, AND 3RD TOE.PT IS ON ISOLATION FOR MRSA OF THE NARES.GISELA IS D/D.
[2018-12-02 04:16] VITALS: BP 143/52
--- NOTE | 2018-12-02 04:29 | NUR ---
ASSUMED PT CARE AT 1900. PT A/OX4, VITAL SIGNS STABLE. NO COMPLAINTS OF PAIN, ASSESSMENT CHARTED. [id number], TUBE FEEDING AT GOAL RATE OF 50ML/HR. DIFFICULT TO UNDERSTAND PT WHEN TRYING TO COMMUNICATE NEEDS. ENSURED PT WAS COMFORTABLE MUCH POSSIBLE. RESTED WELL THROUGH THE NIGHT. WILL CONTINUE TO MONITOR.
[2018-12-02 08:12] VITALS: BP 129/42
[2018-12-02 08:35] LABS: BASOPHILS 0.1 % (0.0-2.0); EOSINOPHILS 1.7 % (0.0-3.0); HEMATOCRIT 23.2 % (42.0-52.0); LYMPHOCYTES 22.6 % (24.0-44.0); MCH 29.3 pg (26.0-34.0); MCHC 32.2 g/dL (28.0-37.0); MCV 90.8 fL (80.0-100.0); MONOCYTES 5.1 % (1.0-8.0); PLATELET COUNT 384 thou/uL (150-400); POLYS 70.5 % (36.0-66.0); RBC 2.56 mil/uL (4.50-6.00); RDW 16.5 % (10.5-14.5); WBC 12.7 thou/uL (4.0-11.0)
[2018-12-02 08:36] LABS: HEMOGLOBIN 7.5 gm/dL (14.0-18.0)
[2018-12-02 08:42] LABS: CALCIUM 7.9 mg/dL (8.5-10.1); CREATININE 0.7 mg/dL (0.7-1.3); POTASSIUM 3.7 mmol/L (3.5-5.1)
--- NOTE | 2018-12-02 12:02 | NUR ---
WOUND CARE FOLLOW UP; ROUNDING WITH JANES PUBLIC SAFETY DISPATCHER AND YUSRA RN. ASSESSMENT OF THE LEFT FOOT WOUNDS. 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 PLAN; NO CHANGES NECCESSARY TODAY. DISCUSSED WITH STAFF
[2018-12-02 12:12] VITALS: BP 129/45
[2018-12-02 16:00] VITALS: BP 155/50
--- NOTE | 2018-12-02 18:01 | NUR ---
ASSUMED CARE @ 0700 12/02/18, PT ALERT AND ORIENTED 2-3, PT ABLE TO ANSWER QUESTIONS APPROPRIATELY BUT CONSTANTLY REFUSES TO BE TURNED AND REFUSES CLEAN-UP DURING SOME OCCASIONS, PT EDUCATED ON REASONS WHY WE HAVE TO KEEP HIS BOTTOM CLEAN AND DRY DUE TO WOUNDS. PT IS V-PACED @ 60, EDEMA PRESENT, SEE PROCESS INTERVENTIONS FOR SPECIFICS. PT HAS A PEG TUBE, TF RUNNING AT GOAL PIVOT 1.5, Q6H ACCUCHECKS, BS COVERED DURING THIS SHIFT. HIGGINS IN PLACE, GOP NOTED. FALL PRECAUTIONS IN PLACE, PLAN OF CARE- CONT TO MONITOR.
[2018-12-02 20:08] VITALS: BP 148/54
[2018-12-03 05:00] VITALS: BP 152/43
[2018-12-03 06:36] VITALS: BP 144/46
--- NOTE | 2018-12-03 06:36 | NUR ---
ASSUME CARE 1900. PT/VITALS STABLE. DENIES PAIN. POOR ACTIVITY TOLERANCE. q2 TURNS. ASSESSMENT CHARTED. RA NOTED WITH ADEQUATE SATS. VERY SLURRED SPEECH NO0TED. PT STRUGGLES WITH COMMUNICATING NEEDS. A/O X 4. PLAN IS TO CONTINUE WITH ABX AND TUBE FEEDING TO PREVENT FURTHER ASPIRATION PNA, AND POSSIBLE DISCAHRGE BACK TO LONG-TERM WITHIN A FEW DAY. WILL CONTINUE TO MONITOR AND FOLLOW [facility] POC
[2018-12-03 08:32] VITALS: BP 133/41
[2018-12-03 10:42] LABS: ABSOLUTE NEUTROPHILS 12.9 thou/uL (1.4-8.2); BASOPHILS 1.1 % (0.0-2.0); EOSINOPHILS 0.7 % (0.0-3.0); HEMATOCRIT 25.4 % (42.0-52.0); HEMOGLOBIN 8.3 gm/dL (14.0-18.0); LYMPHOCYTES 4.3 % (24.0-44.0); MCH 29.9 pg (26.0-34.0); MCHC 32.6 g/dL (28.0-37.0); MCV 91.6 fL (80.0-100.0); MONOCYTES 2.9 % (1.0-8.0); PLATELET COUNT 387 thou/uL (150-400); RBC 2.77 mil/uL (4.50-6.00); RDW 17.2 % (10.5-14.5); WBC 14.2 thou/uL (4.0-11.0)
[2018-12-03 10:51] LABS: CALCIUM 8.1 mg/dL (8.5-10.1); CREATININE 0.7 mg/dL (0.7-1.3); POTASSIUM 3.8 mmol/L (3.5-5.1)
[2018-12-03 11:55] VITALS: BP 153/47
[2018-12-03] MEDS ORDERED: CEFDINIR300 MG PO (12:07)
[2018-12-03] MEDS ORDERED: LINEZOLID600 MG PO (12:08)
[2018-12-03] MEDS ORDERED: PREDNISONE 10 M10 MG PO (12:19)
[2018-12-03] MEDS ORDERED: LASIX 40 MG TAB40 M2 PO (12:20)
--- NOTE | 2018-12-03 13:41 | NUR ---
PT DISCHARGING TODAY TO [facility] [place] FAXED DC ORDERS/SUMMARY TO FACILITY ORDERS RECEIVED TRANSPORTATION ARRANGED VIA AMBULANCE FOR 1445. NEICE NOTIFIED BY SW AND UNIT NOTIFIED, CHART COPY PER US. RN TO CALL REPORT TO [phone].
--- NOTE | 2018-12-03 15:00 | NUR ---
ASSESSMENT CHARTED - MEDS PER JUL - NO CO'S OF PAIN OR NAUSEA. GRICELDA TUBE FEEDING @ 50CC AN HOUR - NO RESIDUAL. PT APHASIC AND DIFFICULT TO CONVERSE WITH. TURNED PATIENT WOULD ALLOW. PT TRANSFERED BACK TO [facility] THIS AFTERNOON. REPORT CALLED PRIOR TO PATIENT D/C. TRANSFERED VIA STRETCHER/ AMBULANCE. NO CO'S AT TIME OF D/C.
--- NOTE | 2018-12-03 15:33 | NUR ---
SPOKE WITH PT, HIS FRIEND/DPOA MAURICIO AND HIS NIECE ROXY WHO ARE ALL AGREEABLE TO DC BACK TO LTC AT [facility] TODAY. SEE DC CUSTOM BIKE BUILDER NOTE WIT DETAILS OF DC.
== END 2018-12-03 15:03 | DRG 870 ==
LOC: ER 21:45 → EROBS 22:32 → ICU 22:32 → 2N 12-01 18:29
PROVIDERS: Emergency Medicine; Hospitalist; Internal Medicine Pulmonary Disease; Nurse Practitioner Acute Care; ADMIT Internal Medicine
DX: A41.9 Sepsis, unspecified organism (principal); L89.153 Pressure ulcer of sacral region, stage 3; L89.313 Pressure ulcer of right buttock, stage 3; L89.893 Pressure ulcer of other site, stage 3; J69.0 Pneumonitis due to inhalation of food and vomit; J96.01 Acute respiratory failure with hypoxia; E43 Unspecified severe protein-calorie malnutrition; J15.212 Pneumonia due to Methicillin resistant Staphylococcus aureus; R65.21 Severe sepsis with septic shock; N17.0 Acute kidney failure with tubular necrosis; K65.9 Peritonitis, unspecified; N39.0 Urinary tract infection, site not specified; J98.11 Atelectasis; I48.91 Unspecified atrial fibrillation; E11.22 Type 2 diabetes mellitus with diabetic chronic kidney disease; E78.5 Hyperlipidemia, unspecified; N18.3 Chronic kidney disease, stage 3 (moderate); R13.10 Dysphagia, unspecified; R74.0 Nonspecific elevation of levels of transaminase and lactic acid dehydrogenase [LDH]; I12.9 Hypertensive chronic kidney disease with stage 1 through stage 4 chronic kidney disease, or unspecified chronic kidney disease; E11.51 Type 2 diabetes mellitus with diabetic peripheral angiopathy without gangrene; B96.4 Proteus (mirabilis) (morganii) as the cause of diseases classified elsewhere; D64.9 Anemia, unspecified; E87.70 Fluid overload, unspecified; Z86.73 Personal history of transient ischemic attack (TIA), and cerebral infarction without residual deficits; Z93.1 Gastrostomy status; Z68.26 Body mass index [BMI] 26.0-26.9, adult; Z89.611 Acquired absence of right leg above knee; Z86.718 Personal history of other venous thrombosis and embolism; Z95.0 Presence of cardiac pacemaker; Z86.711 Personal history of pulmonary embolism; Z79.899 Other long term (current) drug therapy
CPT/HCPCS: 10078; 10081; 27000